=== PATIENT | female | born 1980 | race Caucasian/White ===

== ENCOUNTER 2022-12-14 06:26 | Day surgery (SDC) | payer OTHER ==
[~2022-12-14 06:26] MED LIST: ASTRINGYN 8 GM TP ONE; XYLOCAINE 1%/Epi 1:100000 MDV 20 ML ONE
[2022-12-14] MEDS ORDERED: Versed 2 MG/2 ML Injection IV PRN (06:52)
[2022-12-14] MEDS ORDERED: CEFAZOLIN 2 GM-D5W BAG** 2 GM/50 ML ML IV SCH (07:00)
[2022-12-14] MEDS ORDERED: Lactated Ringers 1,000 ML IV SCH (07:00)
[2022-12-14] MEDS ORDERED: DIPRIVAN 200 MG/20 ML IV ONE (07:38)
[2022-12-14] MEDS ORDERED: Decadron 4 MG INJ ONE (07:38)
[2022-12-14] MEDS ORDERED: TORAdol 30 mg Injection ONE (07:38)
[2022-12-14] MEDS ORDERED: Zofran 4 MG/2 ML VIAL ONE (07:38)
[2022-12-14] MEDS ORDERED: SUBLIMAZE 100 MCG/2 ML ONE ×2 (07:39→09:04)
[2022-12-14] MEDS ORDERED: Versed 2 MG/2 ML Injection ONE (07:39)
[2022-12-14] MEDS ORDERED: Hydromorphone 1 mg/ml Injection ONE (09:05)
[2022-12-14 09:35] VITALS: O2SAT 94
[2022-12-14 09:55] LABS: Vitamin D Total 16.8 ng/mL (30-100)
[2022-12-14 10:11] VITALS: BP 122/72; PULSE 82
[2022-12-14 10:29] LABS: Risk Ratio 6.3
--- NOTE | 2022-12-15 09:59 | OP ---
SURGERY DATE/TIME: 12/14/2022 0810 PREOPERATIVE DIAGNOSIS: Abnormal uterine bleeding and persistent cervical dysplasia with atypical squamous cells of undetermined significance. POSTOPERATIVE DIAGNOSIS: Abnormal uterine bleeding and persistent cervical dysplasia with atypical squamous cells of undetermined significance. PROCEDURE: Hysteroscopy D&C with NovaSure ablation and loop electrosurgical excision procedure (LEEP). SURGEON: Anam Ragsdale D.O. CAN SEALER: Lynn Fleming surgical instrument repair specialist. ANESTHESIA: General. ESTIMATED BLOOD LOSS: Minimal. COMPLICATIONS: None. INDICATIONS: The risks, benefits, indications and alternatives of the procedure were reviewed with the patient prior to procedure. The patient understood the risk of infection, bleeding, bowel injury, bladder injury, uterine perforation and pelvic infection associated with the surgery and desires to have this surgery as a possible means to alleviate her current medical condition. DESCRIPTION OF PROCEDURE AND FINDINGS: At this point the patient is taken to the operating room, given general sedation, placed in dorsal lithotomy position, prepped and draped in usual sterile fashion. A weighted speculum is then placed in the patient's vagina and the anterior lip of the cervix is grasped with a single tooth tenaculum. Endocervical dilators advanced through the endocervical canal as a means to dilate the cervix and the uterus was sounded to approximately 9 cm. From this point, a 5 mm hysteroscope is then placed through the endocervical region where visualization of the endometrial cavity appeared to be within normal limits with no gross abnormalities that was noted. From this point the hysteroscope is removed and a curette is then placed into the fundus of the uterus and curettage was performed in all quadrants of the uterus retrieving a mild to moderate amount of tissue. At this point hemostasis is obtained. From this point the NovaSure instrument was then placed in through the endocervical region towards the fundus where the length was set at 6.5 cm and was retracted approximately 1 cm where at this point it was engaged with a width of 3.6 cm. The ablative machine was turned on with the time of 58 seconds that completed the ablation. At this point the instrument was disengaged and removed from the uterine cavity. From this point after the removal of the NovaSure, the loop instrument was then used to excise the ectocervical portion with a right to left motion and an in depth of 7 to 8 mm tissue was excised and was done so without complication. Hemostasis was obtained by placing the loop shipping track supervisor ball on the surface of the cervix. From this point all instruments were removed from the patient's vaginal region. The patient is then taken out of the dorsal lithotomy position, taken out of the anesthesia and was then taken to the recovery room in stable condition. All instruments and laps were accounted for x2.
== END 2022-12-14 10:12 | disposition home or self-care (01) ==
LOC: SDC 06:26
PROVIDERS: ATTEND Obstetrics & Gynecology
DX: N93.9 Abnormal uterine and vaginal bleeding, unspecified (principal); N87.9 Dysplasia of cervix uteri, unspecified; E03.9 Hypothyroidism, unspecified
CPT/HCPCS: 36415; 80061; 81025; 82306; 82607; 83036; 83540; 83550; 83721; J0690; J1100; J1170; J1885; J2250; J2405; J2704; J3010; A9270-GY